=== PATIENT | female | born 1975 | race Caucasian/White ===

== ENCOUNTER 2025-05-09 15:30 | Outpatient (AMB) | payer OTHER, SELFPAY ==
--- NOTE | 2025-05-09 15:34 | MHC.PC.OV ---
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 Transfer [facility]. Last seen ~3 years ago History of CP, shortness of breath. Negative stress test. She had EGD, esophageal manometry in remote past was thought to have esophageal spasm. She recently had a severe episode of epigastric pain x 20 minutes. 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 She felt unwell and weak. It self resolved. She still has intermittent issues when she feels her esophagus spasm especially with nuts and seeds. Her bowels are changed for the past ~year. She has difficulty passing stools and when she does they are large and sticky. She takes magnesium glycinate due to leg cramps as well as magnesium hydroxide. Hysterectomy in 2017. Weight gain thereafter has been able to lose some weight since. She is working 16 hour days 1.5 h to and from work. Follows with Dr Lara. sees annually Mammo ~07/2024 Reports having one prior cologuard. would like to pursue again ROS see HPI PHYSICAL EXAM: GENERAL: Alert and oriented x 3. NAD EYES: EOMI. Anicteric. HENT: Moist mucous membranes. No scleral icterus. No cervical lymphadenopathy. LUNGS: Clear to auscultation bilaterally. CARDIOVASCULAR: Regular rate and rhythm. No murmur. No JVD. ABDOMEN: Soft, non-tender +bs EXTREMITIES: No edema. Non-tender. SKIN: No rashes or lesions. Warm. NEUROLOGIC: No focal neurological deficits. CN II-XII grossly intact PSYCHIATRIC: Cooperative. Appropriate mood and affect [facility] Medical History H/O mammogram Surgical History History of appendectomy History of hysteroscopy H/O section H/O vaginal hysterectomy H/O wisdom tooth extraction Hx of cholecystectomy H/O laparoscopy Family History Mother Hypothyroidism Sister Hypothyroidism Paternal Aunt Breast cancer Father FH: prostate cancer Other Uterine cancer Social History Housing: House Patient Tobacco Use Status: Never used Tobacco e-Cigarette/Vaping Use: Never Used Second Hand Smoke Exposure: No service: No Current occupational status: employed 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 1. Little interest or pleasure in doing things: not at all 2. Feeling down, depressed, or hopeless: not at all 3. Trouble falling or staying asleep, or sleeping too much: not at all 4. Feeling tired or having little energy: not at all 5. Poor appetite or overeating: not at all 6. Feeling bad about yourself - or that you are a failure or have let yourself or your family down: not at all 7. Trouble concentrating on things, such as reading the newspaper or watching television: not at all 8. Moving or speaking so slowly that other people could have noticed. Or the opposite - being so fidgety or restless that you have been moving around a lot more than usual: not at all 9. Thoughts that you would be better off or of hurting yourself in some way: not at all Total score: 0 Depression Screening Done: [place] 35476 - PHQ-9 Billing: Yes Source: Developed by Drs. Kanu Patel, Susanna B.Guy Quiroga and colleagues, with an educational juan ramon from [employer]. Thrive Questionnaire I am a: Patient What is your living situation today?: I have a steady place to live Within the past 12 months, did the food you bought not last and you didn't have the money to get more?: Never true Within the past 12 months, did you worry whether your food would run out before you got money to buy more?: Never true Do you have trouble paying for medicines?: No Do you have trouble getting transportation to medical appointments?: No Do you have trouble paying your heating and electricity bill?: No Do you have trouble taking care of your child, family member or friend?: No Do you have trouble with day-to-day activities such as bathing, preparing meals, shopping, managing finances, etc.?: No Are you currently unemployed and looking for a job?: No Are you interested in more education?: No Please select the resources that you would like help with: None Currently or been in a relationship where the following occur: No concerns reported THRIVE Score: 0 AUDIT C Alcohol Use Questionnaire (AUDIT-C) 1. How often do you have a drink containing alcohol?: 2-4 times a month 2. How many drinks containing alcohol do you have on a typical day when you are drinking?: 1 or 2 3. How often do you have six or more drinks on one occasion?: Never Total Score: 2 ORALIA-7 AMB Questionnaire ORALIA-7 Feeling nervous, anxious, or on edge: 0 = Not at all Not being able to stop or control worryin = Not at all Worrying too much about different things: 0 = Not at all Trouble relaxin = Not at all Being so restless that it is hard to sit still: 0 = Not at all Becoming easily annoyed or irritable: 0 = Not at all Feeling afraid as if something awful might happen: 0 = Not at all Total ORALIA-7 score (0-4 normal; 5-9 mild; 10-14 moderate; 15-21 severe): 0 Source: Developed by Drs. Kanu Patel, Guy Villa and colleagues, with an educational juan ramon from [employer]. Physical exam (Primary Care) Vital Signs: Last Vital Signs Temp 98 F 05/09/25 15:38 Pulse 89 05/09/25 15:38 Resp 14 05/09/25 15:38 BP 104/72 05/09/25 15:38 Pulse Ox 98 05/09/25 15:38 Oxygen Delivery Method Room Air 05/09/25 15:38 BMI result Body Mass Index 35.3 Tobacco/Smoking Status: Tobacco use Status Tobacco use date assessed 05/09/25 05/09/25 15:41 Patient Tobacco Use Status Never used Tobacco 05/09/25 15:41 e-Cigarette/Vaping Use Never Used 05/09/25 15:41 Currently or been in a relationship where the following occur: No concerns reported Coding Level of Care Code New Pt Prev Care 40-64y(03718) Diagnoses Physical exam Z00.00 Chest pain, unspecified type R07.9 Chest pain type: unspecified Esophageal spasm K22.4 Elevated glucose R73.09 Additional Codes PHQ-9 - 82065 - PHQ-9 Billing: Yes ([id number]) Assessment & Plan Assessment & Plan (1) Physical exam: Code(s): Z00.00 - Encounter for general adult medical examination without abnormal findings (2) Chest pain: Code(s): R07.9 - Chest pain, unspecified Category: Medical Qualifiers: Chest pain type: unspecified Qualified Code(s): R07.9 - Chest pain, unspecified (3) Esophageal spasm: Code(s): K22.4 - Dyskinesia of esophagus Category: Medical (4) Elevated glucose: Code(s): R73.09 - Other abnormal glucose Category: Medical Plan 49 year old female to reestablish care Interval history reviewed. Chest pain-r/o cardiac cause. stress test, echo ordered. EKG performed Referral GI-esophageal spasm, change in bowels. Start linzess. Decrease magnesium Elevated glucose, HLD-check labs Orders: Orders Comprehensive Met. Panel Today E78.5 - Hyperlipidemia, unspecified, K22.4 - Dyskinesia of esophagus, K59.00 - Constipation, unspecified, R07.9 - Chest pain, unspecified, R73.09 - Other abnormal glucose, Z13.0 - Encounter for screening for diseases of the blood and blood-forming organs and certain disorders involving the immune mechanism TSH reflex Free T4 Today E78.5 - Hyperlipidemia, unspecified, K22.4 - Dyskinesia of esophagus, K59.00 - Constipation, unspecified, R07.9 - Chest pain, unspecified, R73.09 - Other abnormal glucose, Z13.0 - Encounter for screening for diseases of the blood and blood-forming organs and certain disorders involving the immune mechanism NM cardiolite stress test Today R07.9 - Chest pain, unspecified CA stress test Today R07.9 - Chest pain, unspecified IRON PROFILE Today R25.2 - Cramp and spasm Vitamin B12 and Folate Today R25.2 - Cramp and spasm Complete Blood Count Auto Diff Today E78.5 - Hyperlipidemia, unspecified, K22.4 - Dyskinesia of esophagus, K59.00 - Constipation, unspecified, R07.9 - Chest pain, unspecified, R73.09 - Other abnormal glucose, Z13.0 - Encounter for screening for diseases of the blood and blood-forming organs and certain disorders involving the immune mechanism Lipid Panel Today E78.5 - Hyperlipidemia, unspecified, K22.4 - Dyskinesia of esophagus, K59.00 - Constipation, unspecified, R07.9 - Chest pain, unspecified, R73.09 - Other abnormal glucose, Z13.0 - Encounter for screening for diseases of the blood and blood-forming organs and certain disorders involving the immune mechanism Hemoglobin A1c Today E78.5 - Hyperlipidemia, unspecified, K22.4 - Dyskinesia of esophagus, K59.00 - Constipation, unspecified, R07.9 - Chest pain, unspecified, R73.09 - Other abnormal glucose, Z13.0 - Encounter for screening for diseases of the blood and blood-forming organs and certain disorders involving the immune mechanism CA echo transthoracic complete Today R07.9 - Chest pain, unspecified Referrals Cologuard Test Z12.11 - Encounter for screening for malignant neoplasm of colon, Z12.12 - Encounter for screening for malignant neoplasm of rectum Gastroenterology Referral K22.4 - Dyskinesia of esophagus, K59.00 - Constipation, unspecified Medications: New Linzess (linaclotide) 290 mcg PO DAILY 90 caps 12RF NS
[2025-05-09 15:38] VITALS: BP 104/72; PULSE 89; RESP 14; TEMP 36.6; O2SAT 98; BMI 35.3
--- OUTSIDE RECORDS SUMMARY | 2025-05-09 19:42 | XMS_ITS ---
Author Name [facility] Organization Unknown Encounters Encounter Type Encounter Reason Primary Diagnosis Location Date Ambulatory [facility], [facility]. ([facility]) 05/02/2024
--- OUTSIDE RECORDS SUMMARY | 2025-05-09 19:42 | XMS_ITS | Data Portability ---
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 Plan of Treatment Reminders Order Date Submit Date Provider Last Modified By Organization Details Last Modified Time Details Appointments None record ed. Lab None record ed. Referral None record ed. Procedures None record ed. Surgeries None record ed. Imaging MRI, knee, w/o contra st 2023 024 [facility], [address], [place], [address], 11:47:05 Medication Orders None record ed. Patient TargetsNo targets recorded. Patient InstructionsNo instructions recorded. Reason for Referral None Reported. Results Created Date Observation Date Name Description Value Unit Range Abnormal Flag Note LastModifiedBy Organization Detail LastModifiedTime 01/23/20 24 10/27/2022 imagi ng/di agnos tic resul t No observ ation record ed. [email or web address] Not Available 12/25 03:23:38 01/23/20 24 10/26/2022 imagi ng/di agnos tic resul t No observ ation record ed. [email or web address] Not Available 12/25 03:23:39 01/23/20 24 10/24/2019 imagi ng/di agnos tic resul t No observ ation record ed. [email or web address] Not Available 12/25 03:23:55 01/23/20 24 10/24/2019 imagi ng/di agnos tic resul t No observ ation record ed. [email or web address] Not Available 12/25 03:23:56 Result Notes None recorded. Problems Name Problem SNOMED Code Status Onset Date Resolution Date Notes Provider Name and Address Organization Details Recorded Time Patellofemoral osteoarthritis 454443195 Active 2023 Kayla Albetrs i, PA-C [address], [place], [address], [facility] 11:58:38 Problem Notes None recorded. Procedures Surgical History Date Name Laterality Status Provider Name and Address Organization Details Recorded Time 08/05/2024 Sports Knee 4&1 completed Kayla Holly PA-C [address], [place], [address], [facility] 08/05/2024 12:56:24 09/04/2023 Sports Knee 4&1 completed Kayla Trammell PA-C [address], [place], [address], [facility] 09/04/2023 11:59:02 Imaging Results None recorded. Procedure Notes None recorded. Medical Equipment None Reported. Allergies Allergen ID Allergen Name Allergen Category Reaction Reaction Severity Criticality Documentation Date Start Date Code Code System Note Provider Name and Address Organization Details Recorded Time 281449 Product containin g penicilli n (product) medicatio n Not available Not available Not available 07/27/20232022 12212 8001 SNOMED Not Available [facility] 15:38:33 Medications Name Sig Start Date Stop Date Status Note LastModified by Organization Details LastModified Time meloxicam 15 mg tablet TAKE 1 TABLET BY MOUTH EVERY DAY 08/20 completed Not Available Not Available Not Available estradiol 1 mg tablet TAKE 1 TABLET BY MOUTH EVERY DAY 08/05 completed Not Available Not Available Not Available naproxen 500 mg tablet TAKE 1 TABLET BY MOUTH TWICE A DAY active Not Available Not Available No t Available diclofenac 1 % topical gel USE 1-3 GRAMS TOPICALLY 3-4 TIMES DAILY, MAX 16G DAILY DIRECTED active Not Available Not Available No t Available Vitals Date Recorded Body height Body mass index (BMI) Body weight Provider Name and Address Organization Details Last Updated DateTime 08/05/2024 167.64 cm 36 kg/m2 101278.1 g Deanna Cronin [facility] 08/05/2024 13:34:30 Date Recorded Body height Body mass index (BMI) Body weight Provider Name and Address Organization Details Last Updated DateTime 08/21/2023 167.64 cm 36 kg/m2 298700.1 g NELIA HASKINSPlacidoMELANIE Ivana [facility] 08/21/2023 11:26:09 Date Recorded Body height Body mass index (BMI) Body weight Provider Name and Address Organization Details Last Updated DateTime 09/04/2023 167.64 cm 36 kg/m2 722230.1 g NELIA Heath [facility] 09/04/2023 11:35:00 Date Recorded Body height Body mass index (BMI) Body weight Provider Name and Address Organization Details Last Updated DateTime 12/04/2023 167.64 cm 36 kg/m2 941097.1 g NELIA CONTRERASGUKIMBERLI Heath [facility] 12/04/2023 15:47:01 Social History Question Answer Notes LastModified by Organizat ion Details LastModified Time Tobacco Smoking Status Never Smoker NELIA HASKINSPlaicdoGOMEZ ofelia [facility] 08/21/2023 11:26:47 Have You Ever Been Counseled For Unhealthy Alcohol Use? No Information not available 08/21/2023 What Is Your Relationship Status? ivan Information not available 08/21/2023 Sex: Unknown Functional Status Question Answer Note LastModified by Organizat ion Details LastModified Time How many times per week do you consume alcohol? 1-2 times per week Information not available 08/21/2023 Do you use any illicit or recreational drugs? No Information not available 08/21/2023 Do you or have you ever used any other forms of tobacco or nicotine? No Information not available 08/21/2023 What is your level of alcohol consumption? Occasional Information not available 08/21/2023 Mental Status None recorded. Family History Nothing Reported. Medical History Condition Response Coronary Artery Disease N Anxiety/Depression N Emphysema N COPD N Pacemaker N Vascular Disease N Gastrointestinal Disease N Autoimmune disease N Orthotics N Arthritis Y Blood Clot N Acid Reflux (GERD) N Cancer N Stroke N Rheumatoid Arthritis N Arrhythmia N Fibromyalgia N Allergies/Hayfever N Thyroid Problems N Anemia N Kidney/Bladder Problems N Heart Attack (MT) N Diabetes N Bleeding Disorder N Seizures/Epilepsy N AIDS/HIV N Congestive Heart Failure (CHF) N Asthma N Peripheral Vascular Disease N Sleep Apnea N Hepatitis N Heart Disease N Pulmonary Embolism N Hypertension N Osteoporosis N Gynecological HistoryNo gynecological history recorded. Obstetrics History GPAL:G 0 P 0 0 0 0 Past Encounters Encounter ID Performer Location Encounter Start Date Encounter Closed Date Diagnosis/Indication Diagnosis SNOMED-CT Code Diagnosis ICD10 Code Diagnosis IMO Codes Diagnosis Note [id number] ANGEL Aranda [address] [place] [address] 08/21/2023 11:19:51 08/21/2023 11:47:05 Pain of left knee joint 5617701555 55251 M25.282 [id number] ANGEL Aranda [address] [place] [address] 09/04/2023 11:15:45 09/04/2023 15:31:27 Patellofemoral osteoarthritis 524204705 M17.12 [id number] ANGEL Aranda [address] [place] [address] 12/04/2023 15:38:55 12/22/2023 14:18:57 Patellofemoral osteoarthritis 458690744 M17.12 [id number] Kayla Holly PA-C [facility] [place] [address] [place] [address] 08/05/2024 13:15:13 08/22/2024 09:47:03 Patellofemoral osteoarthritis 138047063 M17.12 Health Concerns Section Related Observation LastModified by Organization Detai ls LastModified Time None Recorded Concern Status LastModified by Organization Details LastModified Time None Recorded Advance Directives Directive None Recorded Payers Insurance Date Sequence Insurance Name Policy Number Policy Torres Covered Member ID Torres Member ID Guarantor Name 08/22/2024 1 [facility] [place] [id number] 1 Viola Waddell Zarina [id number] Karl [employer]ajal Notes Date Note Type Note Provider Name and Address Organization Details Recorded Time 4 text/html I am seeing the patient today under the supervision of Dr. Mullins who was available but who did not see the patient.Clinical Update:47-year-old female patient presents today for left knee recheck. She has been using diclofenac cream, naproxen, compressive knee sleeve, keeping to low impact activities with some relief. Pain 3/10 with decreased reported swelling. Continues to localize pain to medial aspect of the knee and feels catching inside the knee joint. HPI: Presented on 10/23/[address] Shah for left knee pain. Reported this started years ago and has been getting worse. She reports difficulty pushing the clutch on her car, stairs. Rest makes her pain better. She has occasional feelings of instability. Presented with worsening pain 8/10 with any movement, 4/10 at rest. Reported increased swelling, increased pain up and down the stairs and at night. She has tried ice, elevation, PT, meloxicam. Reports this began a few days ago after a long walk on the treadmill, her dog also jumped on her. She is worried as her son is getting in [place] in 6 weeks and needs to be able to ambulate for this.Past family, social history and review of systems has been reviewed, updated and is located in the patient s chart.PHYS EXAMINATION:The patient is well appearing and in no apparent distress. Alert and oriented x3. Gait is antalgic to the left.Left knee: ROM knee -3-120 with pain at end range motions. Able to perform a straight leg raise against resistance, able to perform knee extension against resistance. Quadriceps appears intact. Patellar border tenderness. No laxity appreciated with anterior and posterior drawer testing and varus/valgus stress. Negative Meri's. Mild crepitus, with moderate effusion. No erythema, ecchymosis or warmth visualized around the knee. Soft, non-tender calf. Pain with patellofemoral manipulation. Sensation in tact distally.Right knee: No effusion. No erythema, ecchymosis or warmth visualized around the knee. Soft, non-tender calf.Peripheral, vascular, lymphatic examination, skin, neurological, coordination, reflexes, sensation are within normal limits. X-RAYS:Previous 4 view X-rays of bilateral knees reviewed today at [facility] AP and Wolf views demonstrate well-preserved medial and lateral compartment space. Evidence of shallow trochlea. Lateral and merchant views demonstrate mild patellofemoral compartment space narrowing with mild lateral patellar tilt.MRI [id number] of left knee reviewed today demonstrates: Patellofemoral degenerative changes with full thickness chondral loss involving the lateral patellar facet, This measures 20 mm x 12 mm. and opposing lateral trochlear facet. Medial and lateral meniscus intact. Trace joint effusion and Obrien cyst. ACL and PCL intact. IMPRESSION: Left medial sided knee pain with known patellofemoral osteoarthritis, chronic malalignment PLAN: Findings reviewed with the patient today. She has tried Meloxicam 15 mg, Naproxen 500 mg BID, diclofenac cream, hinged knee brace and knee sleeve, activity modification with minimal relief. At this point, recommended MRI of the left knee to rule out medial meniscus tear. Will follow-up in 1 week for MRI review. All concerns are addressed and she understands and agrees with this plan.Speech recognition fingerprint expert software was used to create portions of this document. An attempt at proofreading has been made to minimize errors. Please call for corrections. Kayla Trammell PA-C [address] [facility], [place], [address], [facility] - [facility] 08/27/2023 09:02:22 4 text/html I am seeing the patient today under the supervision of Dr. Mullins who was available but who did not see the patient.Clinical Update:47-year-old female patient presents today for left knee MRI review. She has been using diclofenac cream, naproxen, compressive knee sleeve, keeping to low impact activities with some relief. HPI: Presented on 10/23/[address] Shah for left knee pain. Reported this started years ago and has been getting worse. She reports difficulty pushing the clutch on her car, stairs. Rest makes her pain better. She has occasional feelings of instability. Presented with worsening pain 8/10 with any movement, 4/10 at rest. Reported increased swelling, increased pain up and down the stairs and at night. She has tried ice, elevation, PT, meloxicam. Reports this began a few days ago after a long walk on the treadmill, her dog also jumped on her. She is worried as her son is getting in [place] in 6 weeks and needs to be able to ambulate for this.Past family, social history and review of systems has been reviewed, updated and is located in the patient s chart.PHYS EXAMINATION:The patient is well appearing and in no apparent distress. Alert and oriented x3. Gait is antalgic to the left.Left knee: ROM knee -3-120 with pain at end range motions. Able to perform a straight leg raise against resistance, able to perform knee extension against resistance. Quadriceps appears intact. Patellar border tenderness. No laxity appreciated with anterior and posterior drawer testing and varus/valgus stress. Negative Meri's. Mild crepitus, with mild effusion. No erythema, ecchymosis or warmth visualized around the knee. Soft, non-tender calf. Pain with patellofemoral manipulation. Sensation in tact distally.Right knee: No effusion. No erythema, ecchymosis or warmth visualized around the knee. Soft, non-tender calf.Peripheral, vascular, lymphatic examination, skin, neurological, coordination, reflexes, sensation are within normal limits. X-RAYS:Previous 4 view X-rays of bilateral knees reviewed today at [facility] AP and Wolf views demonstrate well-preserved medial and lateral compartment space. Evidence of shallow trochlea. Lateral and merchant views demonstrate mild patellofemoral compartment space narrowing with mild lateral patellar tilt.MRI Ray[facility]08-26-23 of left knee reviewed today demonstrates: Patellofemoral degenerative changes with full thickness chondral loss involving the lateral patellar facet. Medial and lateral meniscus intact. Osteophyte formation at the medial femoral condyle with chondral surface irregularity and fibrillation. Mild joint effusion and Obrien cyst. ACL and PCL intact. Mild lateral patellar tilt. IMPRESSION: Left knee - patellofemoral osteoarthritis with tricompartmental chondromalacia, chronic malalignment PLAN: Findings reviewed with the patient today. She has tried Meloxicam 15 mg, Naproxen 500 mg BID, diclofenac cream, freerunner brace and knee sleeve, activity modification with minimal relief. At this point, recommended left knee cortisone injection. Follow up in 3 months. All concerns are addressed and she understands and agrees with this plan.Speech recognition fingerprint expert software was used to create portions of this document. An attempt at proofreading has been made to minimize errors. Please call for corrections. Kayla Trammell PA-C [address], [place], [address], [facility] - [facility] 09/04/2023 12:00:15 4 text/html I am seeing the patient today under the supervision of Dr. Corbett who was available but who did not see the patient.Clinical Update:47-year-old female patient presents today for left knee recheck. She has been using diclofenac cream, naproxen, compressive knee sleeve, keeping to low impact activities with some relief. Last cortisone injection 09/04/23 provided excellent relief. She continues to have pain with stairs, incline walking but it is manageable. HPI: Presented on 10/23/[address] Shah for left knee pain. Reported this started years ago and has been getting worse. She reports difficulty pushing the clutch on her car, stairs. Rest makes her pain better. She has occasional feelings of instability. Presented with worsening pain 8/10 with any movement, 4/10 at rest. Reported increased swelling, increased pain up and down the stairs and at night. She has tried ice, elevation, PT, meloxicam. Reports this began a few days ago after a long walk on the treadmill, her dog also jumped on her.Past family, social history and review of systems has been reviewed, updated and is located in the patient s chart.PHYS EXAMINATION:The patient is well appearing and in no apparent distress. Alert and oriented x3. Gait is antalgic to the left.Left knee: ROM knee 0-120. Able to perform a straight leg raise against resistance, able to perform knee extension against resistance. Quadriceps appears intact. Minimal Patellar border tenderness. No laxity appreciated with anterior and posterior drawer testing and varus/valgus stress. Negative Meri's. Mild crepitus, with no effusion. No erythema, ecchymosis or warmth visualized around the knee. Soft, non-tender calf. Minimal Pain with patellofemoral manipulation. Sensation in tact distally.Right knee: No effusion. No erythema, ecchymosis or warmth visualized around the knee. Soft, non-tender calf.Peripheral, vascular, lymphatic examination, skin, neurological, coordination, reflexes, sensation are within normal limits. X-RAYS:Previous 4v X-rays of bilateral knees reviewed. AP and Wolf views demonstrate well-preserved medial and lateral compartment space. Evidence of shallow trochlea. Lateral and merchant views demonstrate mild patellofemoral compartment space narrowing with mild lateral patellar tilt.MRI [facility]08-26-23 of left knee reviewed demonstrates: Patellofemoral degenerative changes with full thickness chondral loss involving the lateral patellar facet. Medial and lateral meniscus intact. Osteophyte formation at the medial femoral condyle with chondral surface irregularity and fibrillation. Mild joint effusion and Obrien cyst. ACL and PCL intact. Mild lateral patellar tilt. IMPRESSION: Left knee - tricompartmental chondromalacia most pronounced in patellofemoral compartment, chronic malalignment PLAN: Findings reviewed. She has been using Naproxen 500 mg as needed, diclofenac cream, freerunner brace and knee sleeve, activity modification, last cortisone injection 09/04/23 with good relief. Discussed viscosupplementation in the future or repeat cortisone injection as needed. Discussed definitive treatment down the line would include total knee arthroplasty, which she is hoping to avoid. She is working on weight loss, discussed low impact exercise and continuing on this journey as it should alleviate some of her knee pain as well. She will follow up as needed. All concerns are addressed and she understands and agrees with this plan.Speech recognition fingerprint expert software was used to create portions of this document. An attempt at proofreading has been made to minimize errors. Please call for corrections. Kayla Trammell PA-C [address], [place], [address], [facility] - [facility] 12/04/2023 16:35:13 5 text/html I am seeing the patient today under the supervision of Dr. Castro who was available but who did not see the patient.Clinical Update:48-year-old female patient presents today for left knee recheck. She has been using diclofenac cream, naproxen, compressive knee sleeve, keeping to low impact activities with good relief! Last cortisone injection 09/04/23 provided excellent relief. Pain has been gradually increasing mostly with incline walking, stairs. HPI: Presented on 10/23/[address] Shah for left knee pain. Reported this started years ago and has been getting worse. She reports difficulty pushing the clutch on her car, stairs. Rest makes her pain better. She has occasional feelings of instability. Presented with worsening pain 8/10 with any movement, 4/10 at rest. Reported increased swelling, increased pain up and down the stairs and at night. She has tried ice, elevation, PT, meloxicam. Reports this began a few days ago after a long walk on the treadmill, her dog also jumped on her.Past family, social history and review of systems has been reviewed, updated and is located in the patient s chart.PHYS EXAM:The patient is well appearing and in no apparent distress. Alert and oriented x3. Gait is symmetric.Left knee: ROM knee 0-120. Able to perform a straight leg raise against resistance, able to perform knee extension against resistance. Quadriceps appears intact. Minimal Patellar border tenderness. Mild tenderness and swelling infrapatellar and pes anserine bursa. No laxity appreciated with anterior and posterior drawer testing and varus/valgus stress. Negative Meri's. Mild crepitus. No erythema, ecchymosis or warmth visualized around the knee. Soft, non-tender calf. Sensation in tact distally.Right knee: No effusion. No erythema, ecchymosis or warmth visualized around the knee. Soft, non-tender calf.Peripheral, vascular, lymphatic examination, skin, neurological, coordination, reflexes, sensation are within normal limits. X-RAYS:Previous 4v X-rays of bilateral knees reviewed. AP and Wolf views demonstrate well-preserved medial and lateral compartment space. Evidence of shallow trochlea. Lateral and merchant views demonstrate mild patellofemoral compartment space narrowing with mild lateral patellar tilt. MRI Ray[facility]08-26-23 of left knee reviewed demonstrates: Patellofemoral degenerative changes with full thickness chondral loss involving the lateral patellar facet. Medial and lateral meniscus intact. Osteophyte formation at the medial femoral condyle with chondral surface irregularity and fibrillation. Mild joint effusion and Obrien cyst. ACL and PCL intact. Mild lateral patellar tilt. IMPRESSION: Left knee - tricompartmental chondromalacia most pronounced in patellofemoral compartment, chronic malalignment PLAN: Findings reviewed. She has been using Naproxen 500 mg as needed, diclofenac cream, freerunner brace and knee sleeve, activity modification, last cortisone injection 09/04/23 with good relief. Discussed viscosupplementation in the future or repeat cortisone injection as needed. She elected to proceed with left knee cortisone injection. Discussed definitive treatment down the line would include total knee arthroplasty, which she is hoping to avoid. She is working on weight loss, discussed low impact exercise and continuing on this journey as it should alleviate some of her knee pain as well. She will follow up as symptoms dictate. All concerns are addressed and she understands and agrees with this plan.Speech recognition fingerprint expert software was used to create portions of this document. An attempt at proofreading has been made to minimize errors. Please call for corrections. Kayla Holly PA-C [address], [place], [address], [place] [facility] 08/05/2024 13:58:20 OBGyn Episode No OBEpisode recorded.
--- OUTSIDE RECORDS SUMMARY | 2025-05-09 19:42 | XMS_ITS | Data Portability ---
Author Organization BRANDT Mota carlos [address] Address [address] [place] [address] Assessment Encounter Date Assessment Date Assessment LastModified by Organization Details LastModified Time 05/02/2024 05/02/2024 Tick Bite- Reviewed pathology of current symptoms, treatment plan, medication side effects/risk/preet efits/directions on taking medications, instructed to keep area clean and dry, discussed worsening symptoms to return to clinic or if after hours to go to ER, patient will be called with lab results and treatment plan changed accordingly. Patient verbalized understanding of treatment plan and denies any questions. You may consider getting tested for the Tick borne illnesses at day 14 after your tick bite. Alph-gal is the one we talked about related to the allergic reactions to red meats, if you have a reaction after eating meats please go to the ER as soon as possible. (remember meats with feathers are usually ok, meats with fur can be a trigger for an allergic reaction) stalin Not available 05/02/2024 19:06:29 Plan of Treatment Reminders Order Date Submit Date Provider Last Modified By Organization Details Last Modified Time Details Appointments None recorded. Lab borrelia burgdorferi IgG + IgM + total panel, IA, serum 2023 024 [facility] [facility] [address] [place] [address], [place], [address], 4 12:06:05 Referral None recorded. Procedures None recorded. Surgeries None recorded. Imaging None recorded. Medication Orders None recorded. Patient TargetsNo targets recorded. Patient Instructions Encounter Date Encounter Id Patient Instructions Last Modified By Organization Details Last Modified Time 05/02/2024 [id number] animal bites: care instructions stalin Not available 05/02/2024 19:06:30 tick bite: care instructions stalin Not available 05/02/2024 19:06:30 Discharge Instructions - Wound Care - Wash the wound gently with soap and warm water once daily. Otherwise keep wound clean, dry and covered with a dressing. - Do not immerse in water, and do not use alcohol or peroxide to clean. Do not use iodine or mercurochrome. - Elevate to decrease pain and improve healing. - Minimize use of affected body part. - Return here or see your doctor for any sign of infection, including redness, swelling, pus or increased pain. - Return for wound check in 2 or 3 days. - Return to have stiches removed in 10 days. General recommendations: Scalp- 7 days Face- 5 day over joints - 14 days Hands/feet- 12 days Other areas - 10 days - If you received a tetanus shot the site may become sore and you may develop a low-grade fever. Take Tylenol if you have fever or pain. Return for a more severe reaction. - See your doctor or return here if not improving in 3 days. jeff Not available 05/02/2024 18:36:05 Reason for Referral None Reported. Results Created Date Observation Date Name Description Value Unit Range Abnormal Flag Note LastModifiedBy Organization Detail LastModifiedTime 05/02/20 24 05/03/2024 LYME DISEA SE SEROL OGY W/REF MELODY lyme total antibody mariana NEGATI VE negati ve Lyme antib odies not detec tracy. Refle x testi ng is not indic ated. No labor atory evide nce of infec tion with B. burgd orfer i (Lyme disea se). Negat orly resul ts may occur in patie nts recen tly infec tracy (less than or equal to 14 days) with B. burgd orfer i. If recen t infec tion is suspe cted, repea t testi ng on a new sampl e colle cted in 7 to 14 days is recom clare d. Not Available [facility] ([facility]) [address] [facility], [place], [address], 05/03/2024 12:06:04 Result Notes None recorded. Problems No Known Problems Procedures Surgical History Date Name Laterality Status Provider Name and Address Organization Details Recorded Time 05/02/2024 Wound Care UC completed Colt Cummins [facility] 05/02/2024 18:36:05 Imaging Results None recorded. Procedure Notes None recorded. Medical Equipment None Reported. Allergies Allergen ID Allergen Name Allergen Category Reaction Reaction Severity Criticality Documentation Date Start Date Code Code System Note Provider Name and Address Organization Details Recorded Time 7067551 Product containin g penicilli n (product) medicatio n angioedem a Not available Not available 05/02/2024 21440 8001 SNOMED Colt gilbert [place] [facility] 18:44:34 2295777 azithromy rey medicatio n diarrhea Not available Not available 05/02/2024 27412 RxNorm Colt gilbert [place] - [facility] 18:45:21 Medications Name Sig Start Date Stop Date Status Note LastModified by Organization Details LastModified Time naproxen 500 mg tablet TAKE 1 TABLET BY MOUTH TWICE A DAY 05/02 completed Not Available Not Available Not Available diclofenac 1 % topical gel USE 1-3 GRAMS TOPICALLY 3-4 TIMES DAILY, MAX 16G DAILY DIRECTED 05/02 completed Not Available Not Available Not Available multivit and minerals-fe rrous gluconate 9 mg iron/15 mL oral liquid Take by oral route. active Not Available Not Available No t Available Vitals Date Recorded Body height Body mass index (BMI) Body weight Oxygen saturation Pain severity - 0-10 verbal numeric rating [Score] - Reported Heart rate Respiratory rate Body temperature Systolic And Diastolic Provider Name and Address Organization Details Last Updated DateTime 4 167.64 cm 35.2 kg/m2 38805.1 4 g 98 % 5 89 /min 18 /min 98 [degF] 149/84 mm[Hg] Colt Cummins [facility] 18:42:09 Social History Question Answer Notes LastModified by Organizat ion Details LastModified Time Tobacco Smoking Status Never Smoker Colt gilbert [place] - [facility] 05/02/2024 18:48:25 Have You Had A Flu Shot This Season? Yes jeff Information not available 05/02/2024 If No, Would You Like A Flu Shot Today? No Information not available 05/02/2024 What Is Your Water Source? City Information not available 05/02/2024 What Is Your Heat Source? Other Information not available 05/02/2024 What Is Your Relationship Status? Information not available 05/02/2024 Are You Passively Exposed To Smoke? No Information no t available 05/02/2024 Have You Recently Traveled Abroad? No Information not available 05/02/2024 Sex: Unknown Functional Status Question Answer Note LastModified by Organizat ion Details LastModified Time Do you use any illicit or recreational drugs? No Information not available 05/02/2024 Do you or have you ever used any other forms of tobacco or nicotine? No Information not available 05/02/2024 Are you currently employed? Yes Information not available 05/02/2024 Mental Status None recorded. Family History Relationship Description Onset Age of this Age Resolved Age Notes LastModified by Organization Details LastModified Time Father Malignant neoplasm of prostate fcuevasgonzal ez Not available 05/02/2024 18:47:38 Mother Malignant neoplasm of uterus fcuevasgonzal ez Not available 05/02/2024 18:47:52 Medical History No medical history recorded. Gynecological History Statement/Question Response Is there any chance of ? No Obstetrics History GPAL:G 0 P 0 0 0 0 Immunizations Vaccine Type Date Status Note Provider Nam e and Address Organization Details Recorded Time Influenza, MDCK, quadrivalent, PF 9 completed BRANDT Christian [facility] 05/02/2024 18:43:59 COVID-19, mRNA, LNP-S, PF, 100 mcg/0.5mL dose or 50 mcg/0.25mL dose 1 completed BRANDT Christian [facility] 05/02/2024 18:43:59 COVID-19, mRNA, LNP-S, PF, 100 mcg/0.5mL dose or 50 mcg/0.25mL dose 1 completed Colt Huddleston Kevin null, PA - [facility] 05/02/2024 18:43:59 COVID-19, mRNA, LNP-S, PF, 100 mcg/0.5mL dose or 50 mcg/0.25mL dose 1 completed Colt Huddleston Kevin null, PA - [facility] 05/02/2024 18:43:59 COVID-19, mRNA, LNP-S, bivalent, PF, 30 mcg/0.3 mL dose 2 completed Colt Huddleston Kevin null, PA - [facility] 05/02/2024 18:43:59 COVID-19, mRNA, LNP-S, PF, leida-sucrose, 30 mcg/0.3 mL 4 completed Colt Huddleston Kevin null, PA - [facility] 05/02/2024 18:43:59 COVID-19, mRNA, LNP-S, PF, leida-sucrose, 30 mcg/0.3 mL 3 completed Colt Huddleston Kevin null, PA - [facility] 05/02/2024 18:43:59 Influenza, split virus, trivalent, preservative 0 completed Colt Huddleston Kevin null, PA - [facility] 05/02/2024 18:43:59 Influenza, split virus, trivalent, PF 4 completed Colt Huddleston Kevin null, PA - [facility] 05/02/2024 18:43:59 Influenza, split virus, quadrivalent, PF 2 completed Colt Huddleston Kevin null, PA - [facility] 05/02/2024 18:43:59 Influenza, split virus, quadrivalent, PF 1 completed Colt Huddleston Kevin null, PA - [facility] 05/02/2024 18:43:59 Past Encounters Encounter ID Performer Location Encounter Start Date Encounter Closed Date Diagnosis/Indication Diagnosis SNOMED-CT Code Diagnosis ICD10 Code Diagnosis IMO Codes Diagnosis Note [id number] [facility] [address] [place] [address] 02/20/2016 16:52:40 02/20/2016 17:10:[id number] [place] [address] [facility] [address] 03/01/2018 16:33:35 03/01/2018 17:14:[id number] [place] [address] _[address] [address] 03/05/2015 17:44:10 03/05/2015 17:56:[id number] [place] [address] [address] [address] 03/18/2017 16:45:41 03/18/2017 16:58:28 [id number] BRANDT HIGGINS [address] [address] 05/02/2024 18:21:56 05/02/2024 19:26:12 Tick bite 04661927 W57.XXXD Health Concerns Section Related Observation LastModified by Organization Detai ls LastModified Time None Recorded Concern Status LastModified by Organization Details LastModified Time None Recorded Advance Directives Directive None Recorded Payers Insurance Date Sequence Insurance Name Policy Number Policy Torres Covered Member ID Torres Member ID Guarantor Name 05/02/2024 1 [facility] [id number] 1 Karl Srinivasan [id number] Viola Srinivasan Notes Date Note Type Note Provider Name and Address Organization Details Recorded Time 05/02/2024 text/html Animal BiteRepor tracy by PatientHPIFor wound type, patient reportspuncture. For onset of exposure, patient reports5 weeks ago. For associated symptoms, patient reportsno wound drainage. pt reports a tick bite 5 weeks agoreports that she is having sx of body aches and chillpt would like to be tested for lyme disease KENDRA IRAHETA NP [address] [place], [address], [place] - [facility] 05/02/2024 19:24:54 OBGyn Episode No OBEpisode recorded.
== END 2025-05-09 16:14 | disposition home or self-care (01) ==
LOC: HO.HMCFM 15:31
PROVIDERS: PCP Internal Medicine; Visit Provider Internal Medicine
DX: Z00.00 Encounter for general adult medical examination without abnormal findings (principal); R07.9 Chest pain, unspecified; K22.4 Dyskinesia of esophagus; R73.09 Other abnormal glucose

== ENCOUNTER → 2025-05-09 15:30 | Outpatient (BNVA) | payer OTHER, SELFPAY | PROVIDERS: PCP Internal Medicine; Visit Provider Internal Medicine | DX: Z00.01 Encounter for general adult medical examination with abnormal findings (principal); K22.4 Dyskinesia of esophagus; R73.09 Other abnormal glucose; E78.5 Hyperlipidemia, unspecified; J30.9 Allergic rhinitis, unspecified | CPT/HCPCS: 96127 ==